=== PATIENT | female | born 1960 | race Native Hawaiian/Other Pacific Islander ===

== ENCOUNTER 2017-09-07 14:34 | Emergency (ER) | payer BC, OTHER ==
[~2017-09-07] VITALS: Ht 152.4 cm; Wt 81.6 kg
[~2017-09-07 14:34] MED LIST: ASPI81TA31 PO; EXEN10PE3 SQ; HYDR25TA4 PO; LOSA25TA13 PO; METF10004 PO
[2017-09-07] MEDS ORDERED: INSU100C SQ (14:53)
[2017-09-07] MEDS ORDERED: INSU100V7 SQ (14:53)
[2017-09-07] MEDS ORDERED: CHOL20004 PO (14:53)
[2017-09-07] MEDS ORDERED: GLIP10TA11 PO (14:53)
[2017-09-07 14:59] LABS: *BILIRUBIN,URIN NEGATIVE (NEGATIVE); *BLOOD, URINE Trace-intact (NEGATIVE); *CLARITY,URINE CLEAR (CLEAR); *COLOR,URINE YELLOW (YELLOW); *KETONES,URINE NEGATIVE (NEGATIVE); *PROTEIN,URINE 1+ (NEGATIVE); *UROBILINOGEN,URINE 0.2 E.U./dl (NORMAL); LEUKOCYTE ESTERASE ,URINE NEGATIVE (NEGATIVE); NITRITE, URINE NEGATIVE (NEGATIVE)
[2017-09-07] MEDS ORDERED: ACETAMINOPHEN ES 500 MG TABLET PO ONE (15:00)
[2017-09-07] MEDS ORDERED: ACETAMINOPHEN ES 500 MG TABLET ONE (15:01)
[2017-09-07 15:04] LABS: UGLUCOSE 2+ (NEGATIVE)
[2017-09-07 15:08] LABS: BACTERIA,URINE MODERATE /HPF (NONE SEEN); RBC,URINE 0-3 /HPF (0-3); SQUAMOUS EPITHELIAL CELL,UR FEW /HPF (NONE SEEN); WBC,URINE 20-50 /HPF (0-3)
--- NOTE | 2017-09-07 15:11 | NUR ---
Patient discharged to home in stable conditon. Written and verbal after care instructions given. Patient verbalizes understanding of instructions.
[2017-09-07] MEDS ORDERED: CEFTRIAXONE 1 G VIAL IM ONE (15:15)
[2017-09-07] MEDS ORDERED: CEFTRIAXONE 1 G VIAL ONE (15:16)
--- NOTE | 2017-09-07 15:36 | NUR ---
pt deneis any itching, or any other reaction to rocephin. pt walked in steady gait accompaned by son.
== END 2017-09-07 15:36 | disposition home or self-care (01) ==
LOC: ER 14:36
DX: N39.0 Urinary tract infection, site not specified (principal); I10 Essential (primary) hypertension; E11.9 Type 2 diabetes mellitus without complications; Z79.4 Long term (current) use of insulin; Z79.82 Long term (current) use of aspirin
CPT/HCPCS: 81001; 96372; 99283; A4663; A9150; J0696; J3490

== ENCOUNTER 2018-08-23 22:02 | Inpatient (IN) | payer BC, OTHER ==
[~2018-08-23] VITALS: Ht 154.9 cm; Wt 87.2 kg
[~2018-08-23 22:02] MED LIST changes: +CHOL20004 PO; +GLIP10TA11 PO; +INSU100C SQ; +INSU100V7 SQ; -LOSA25TA13 PO; +LOSA25TA27 PO; -METF10004 PO
--- NOTE | 2018-08-23 22:15 | NUR ---
Patient arrive at the ER with chief complaint of N/Vx2 and dizziness. Patient reported symtoms started half an hour ago. Denies any abd pain or diarhhea. Patient AAOx4. In no acute respiratory distress. No cardiovascular concern. No concern. Fall precaution per protocol.
--- NOTE | 2018-08-23 22:30 | NUR ---
ZEENAT HOLLAND at bedside for MSE.
[2018-08-23] MEDS ORDERED: ONDANSETRON 4 MG/2 ML VIAL ONE (22:39)
[2018-08-23] MEDS ORDERED: IV NORMAL SALINE 1000 ML BAG IV ONE (22:45)
[2018-08-23] MEDS ORDERED: ONDANSETRON 4 MG/2 ML VIAL IV ONE (22:45)
[2018-08-23 22:55] LABS: BASOPHILS # (AUTO) 0.1 K/uL (0.0-8.0); BASOPHILS % (AUTO) 0.7 % (0.0-2.0); EOSINOPHILS # (AUTO) 0.1 K/uL (0.0-0.7); EOSINOPHILS % (AUTO) 0.6 % (0.0-7.0); HEMATOCRIT 36.6 % (31.2-41.9); HEMOGLOBIN 12.4 g/dL (10.9-14.3); LYMPHOCYTES # (AUTO) 1.6 K/uL (20.0-40.0); LYMPHOCYTES % (AUTO) 16.5 % (20.5-51.5); MEAN CORPUSCULAR HGB CONC 34 g/dL (32.3-35.6); MEAN CORPUSCULAR VOLUME 88.6 fL (75.5-95.3); MONOCYTES # (AUTO) 0.6 K/uL (2.0-10.0); MONOCYTES % (AUTO) 5.6 % (0.0-11.0); NEUTROPHILS # (AUTO) 7.6 K/uL (1.8-8.9); NEUTROPHILS % (AUTO) 76.6 % (38.5-71.5); PLATELET COUNT (AUTO) 368 K/uL (179-408); RED BLOOD CELL COUNT(AUTO) 4.13 MIL/uL (3.63-4.92); WHITE BLOOD COUNT (AUTO) 9.9 K/uL (3.8-11.8)
[2018-08-23 23:05] LABS: BILIRUBIN,DIRECT 0.1 mg/dL (0.0-0.2); BILIRUBIN,TOTAL 0.4 mg/dL (0.2-1.0); CREATININE 1.1 mg/dL (0.6-1.3); POTASSIUM 3.6 mmol/L (3.5-5.1); TOTAL PROTEIN, SERUM 8.1 g/dL (6.4-8.2)
--- NOTE | 2018-08-23 23:44 | NUR ---
ZEENAT HOLLAND at bedside.
[2018-08-24] MEDS ORDERED: IV NORMAL SALINE 1000 ML BAG IV ONE
--- NOTE | 2018-08-24 00:25 | NUR ---
Patient AAOx4. Resting comfortbale in bed. In no acute distress. VSS.
[2018-08-24] MEDS ORDERED: FURO-152 PO (00:34)
[2018-08-24] MEDS ORDERED: VITAMIN D PO (00:34)
[2018-08-24] MEDS ORDERED: LOSA25TA27 PO (00:34)
--- NOTE | 2018-08-24 01:05 | NUR ---
Report given to HAMIDA Wisdom. Patient to be transfer to tele unit room 306.
[2018-08-24] MEDS ORDERED: ACETAMINOPHEN 325 MG TABLET PO PRN (01:15)
[2018-08-24] MEDS ORDERED: FUROSEMIDE 20 MG/2 ML VIAL IV ONE (01:15)
[2018-08-24] MEDS ORDERED: HYDROCODONE/APAP 5-325MG TABLET PO PRN (01:15)
[2018-08-24] MEDS ORDERED: ONDANSETRON 4 MG/2 ML VIAL IV PRN (01:15)
[2018-08-24] MEDS ORDERED: Z GUARD REMEDY PASTE 57 GM TUBE TOP PRN (01:15)
[2018-08-24] MEDS ORDERED: MAGNESIUM HYDROXIDE 30 ML LIQUID UDC PO PRN (01:15)
[2018-08-24 01:25] LABS: *BILIRUBIN,URIN NEGATIVE (NEGATIVE); *BLOOD, URINE NEGATIVE (NEGATIVE); *CLARITY,URINE CLOUDY (CLEAR); *COLOR,URINE YELLOW (YELLOW); *KETONES,URINE NEGATIVE (NEGATIVE); *UROBILINOGEN,URINE 0.2 E.U./dl (NORMAL); LEUKOCYTE ESTERASE ,URINE NEGATIVE (NEGATIVE); NITRITE, URINE POSITIVE (NEGATIVE); PH,URINE 7.5 (5.0-8.0)
[2018-08-24 01:30] LABS: UGLUCOSE 2+ (NEGATIVE)
[2018-08-24 01:33] VITALS: BP 124/76
[2018-08-24 01:43] LABS: BACTERIA,URINE MANY /HPF (NONE SEEN); RBC,URINE 0-3 /HPF (0-3); SQUAMOUS EPITHELIAL CELL,UR FEW /HPF (NONE SEEN); WBC,URINE 0-3 /HPF (0-3)
--- NOTE | 2018-08-24 01:46 | NUR ---
Pt. admitted to tele unit #306, under care of Dr. Lockwood. Belongs List completed
--- NOTE | 2018-08-24 02:00 | NUR ---
Received patient from ER. Dx: CHF. Patient is A/Ox4. Was able to ambulate to bed with a steady gait. No signs of acute distress, no complaints of pain or SOB, patient is on room air saturating at 95%. Vitals are WNL. Heplock on the left forearm #20 is intact and patent. Safety measures initiated. Bed is low and locked, call light is within reach. Will continue to monitor.
[2018-08-24 03:15] VITALS: BP 95/46
[2018-08-24 11:30] VITALS: BP 96/36
[2018-08-24 11:31] VITALS: BP_SYST 103; BP_SYST 105; BP_DIAS 51; BP_DIAS 63
[2018-08-24 11:46] VITALS: BP 94/54
[2018-08-24] MEDS ORDERED: INSULIN REGULAR, HUMAN 300 UNIT/3 ML VIAL SQ PRN (15:15)
[2018-08-24] MEDS ORDERED: DEXTROSE 50% 50 ML DISP.SYRIN IV PRN (15:15)
[2018-08-24 16:04] VITALS: BP 109/64
[2018-08-24] MEDS ORDERED: BLOOD SUGAR DIAGNOSTIC 1 EACH STRIP VI SCH (16:30)
--- NOTE | 2018-08-24 17:00 | NUR ---
PATIENT DISCHARGED, AO 4, NO VERTIGO , NO NAUSEA OR ANY DISTRESS WENT DOWNSTAIRS WITH SON AND RN SUPERVISION
[2018-08-24] MEDS ORDERED: CEPH-569 PO (17:01)
[2018-08-24] MEDS ORDERED: INSULIN GLARGINE,HUM 300 UNITS/3 ML CARTRIDGE SQ SCH (21:00)
[2018-08-25] MEDS ORDERED: FUROSEMIDE 20 MG TABLET PO SCH (09:00)
[2018-08-25] MEDS ORDERED: LOSARTAN POTASSIUM 25 MG TABLET PO SCH (09:00)
[2018-08-25] MEDS ORDERED: ASPIRIN 81 MG TAB.CHEW PO SCH (09:00)
[2018-08-25] MEDS ORDERED: CHOLECALCIFEROL 400 UNITS TABLET PO SCH (09:00)
[2018-08-25] MEDS ORDERED: VITAMIN D PO SCH (09:00)
== END 2018-08-24 17:15 | disposition home or self-care (01) | DRG 641 ==
LOC: ER 22:02 → TELE3 08-24 00:45 → MEDSURG3 08-24 16:40
PROVIDERS: ADMIT Student in an Organized Health Care Education/Training Program; ATTEND Registered Nurse
DX: E86.0 Dehydration (principal); N39.0 Urinary tract infection, site not specified; I50.32 Chronic diastolic (congestive) heart failure; I11.0 Hypertensive heart disease with heart failure; E11.9 Type 2 diabetes mellitus without complications; A08.4 Viral intestinal infection, unspecified; E11.65 Type 2 diabetes mellitus with hyperglycemia; E11.43 Type 2 diabetes mellitus with diabetic autonomic (poly)neuropathy; K31.84 Gastroparesis; E66.01 Morbid (severe) obesity due to excess calories; Z68.36 Body mass index [BMI] 36.0-36.9, adult; Z79.4 Long term (current) use of insulin; Z79.82 Long term (current) use of aspirin; Z79.899 Other long term (current) drug therapy; Z90.710 Acquired absence of both cervix and uterus
CPT/HCPCS: 36415; 70030-TC; 71045; 93307; 93880; A4663; G0378; J1815; J1940; J2405